=== PATIENT | male | born 1995 | race Hispanic/Latino ===

== ENCOUNTER 2018-10-21 01:30 | Emergency (ER) | payer OTHER ==
[2018-10-21] MEDS ORDERED: KETOROLAC TROMETHAMINE 60 MG/2 ML VIAL ONE (02:18)
[2018-10-21] MEDS ORDERED: CYCLOBENZAPRINE HCL 10 MG TABLET ONE (02:18)
== END 2018-10-21 03:06 | disposition home or self-care (01) ==
LOC: EDH 01:30
DX: S16.1XXA Strain of muscle, fascia and tendon at neck level, initial encounter (principal); V89.2XXA Person injured in unspecified motor-vehicle accident, traffic, initial encounter; Y93.89 Activity, other specified; Y92.410 Unspecified street and highway as the place of occurrence of the external cause; Y99.8 Other external cause status
CPT/HCPCS: 72040; 96372; 99284; J1885